=== PATIENT | female | born 1950 | race Caucasian/White ===

== ENCOUNTER 2018-05-01 12:30 | Inpatient (IN) | payer OTHER, MEDICARE ==
[~2018-05-01] VITALS: Ht 165.1 cm; Wt 77.1 kg
--- NOTE | ~2018-05-01 | CON ---
[address] [address] CONSULTATION Name: PRACHIDEBBIE Juan Antonio Room: [address] IN ..#: [id number] Admission: 05/01/18 Attend Phys: Savanah Parker Discharge: Date of : 50 Report #: [id number] THIS REPORT FOR: //name// CC: Shana Talbert DO DATE OF SERVICE: 05/02/2018 REQUESTING PHYSICIAN: Robert Talbert DO REASON FOR CONSULT: Acute symptoms of nausea, vomiting and diarrhea. HISTORY OF PRESENT ILLNESS: This is a 68-year-old female with acute symptoms of nausea and vomiting, which started Friday after having a bad headache. The patient reports that her diarrhea and vomiting improved by Friday, but she was not able to eat or hydrate herself. This went on until Friday when she was getting run down and weaker. She decided to go see her primary care doctor, which referred her to the ER. During her ER visit, the patient found to have acute renal failure mainly due to dehydration. She also had some electrolyte imbalance. The patient was admitted for hydration. The patient reports that since admission she is feeling better. She has not had any vomiting or diarrhea. She also denies any abdominal pain. She denies any hematochezia, melena or hematemesis. Her renal function has improved, but not to baseline. She also continues to have hyponatremia with sodium of 129. PAST MEDICAL HISTORY: Significant for history of peptic ulcer disease. She reports that she has had upper endoscopies in the past. She also has had a colonoscopy 4-5 years ago, which was negative. PAST MEDICAL HISTORY: Significant for hypothyroidism, peptic ulcer disease, GERD, arthritis, hypertension, history of foot surgery, hysterectomy, and migraines. ALLERGIES: SIGNIFICANT TO MEPERIDINE. MEDICATIONS: Please refer to hospital MAR. SOCIAL HISTORY: The patient is and lives at home. She denies tobacco or alcohol use. FAMILY HISTORY: Noncontributory. PHYSICAL EXAMINATION: [place] [address] CONSULTATION Name: DEBBIE VELARDE Juan Antonio Room: [address]#: [id number] Admission: 05/01/18 Attend Phys: Savanah Parker Discharge: Date of : 50 Report #: [id number] VITAL SIGNS: Reveals blood pressure of 104/49, respirations 16, pulse 87, temperature 97.1. LUNGS: Clear. CARDIOVASCULAR: Regular. ABDOMEN: Soft, nontender, nondistended. Bowel sounds are positive. NEUROLOGIC: The patient is alert, oriented x 3. There is no focal neurologic deficit. LABORATORY DATA: Reveal sodium of 129, potassium 4.7, BUN is 32, down from 50; creatinine is 1.4, down from 2.2; AST is 151, ALT is 57, lipase is 141, total bilirubin 0.3. WBC is 8.9, hemoglobin is 13.0 with platelet of 334. IMAGING: None has been obtained. ASSESSMENT AND PLAN: The patient with what appears to be gastroenteritis with symptoms of nausea and vomiting and diarrhea, which has improved. Subsequently, she has developed rhabdomyolysis and dehydration with electrolyte imbalance. Since IV hydration she is improving, but she may need another day or two of hospitalization. Her elevated AST is due to rhabdomyolysis rather than being from the liver. I do not see any role for any endoscopic evaluation at this time. We will continue to correct the patient's electrolytes and hopefully she may go home in a day or two. By: [id number] Navas MD /nt
[~2018-05-01 12:30] MED LIST: BUTALB-APAP-CA1 EACH PO; CYMBALTA30 MG PO; OXYCONTIN60 MG PO; PEPCID20 MG PO; PHENERGAN25 MG RE; PROTONIX40 M1 PO
[2018-05-01 12:38] VITALS: BP 98/55
[2018-05-01] MEDS ORDERED: PREDNISONE 10 M10 MG PO (12:42)
[2018-05-01] MEDS ORDERED: TOPAMAX50 MG PO (12:43)
[2018-05-01] MEDS ORDERED: CELEBREX 200 M200 M1 PO (12:43)
[2018-05-01] MEDS ORDERED: ALTACE10 MG PO (12:44)
[2018-05-01] MEDS ORDERED: SYNTHROID50 MCG PO (12:45)
[2018-05-01 13:01] LABS: HEMATOCRIT 37.9 % (37.0-47.0); MCH 31.2 pg (26.0-34.0); MCHC 34.3 g/dL (28.0-37.0); MCV 91.1 fL (80.0-100.0); MPV 6.5 fl. (7.2-11.1); NUCLEATED RBCS 0 /100WBC; PLATELET COUNT* 334 thou/uL (150-400); RBC 4.15 mil/uL (4.20-5.00); RDW-CV 14.1 % (10.5-14.5); WBC 8.9 thou/uL (4.0-11.0)
[2018-05-01 13:18] LABS: CREATININE 2.2 mg/dL (0.6-1.3); POTASSIUM 3.7 mmol/L (3.5-5.1)
[2018-05-01 13:21] LABS: ABSOLUTE LYMPHOCYTES 0.6 thou/uL (0.8-5.3); ABSOLUTE MONOCYTES 0.4 thou/uL (0.0-1.2); ABSOLUTE NEUTROPHILS 7.9 thou/uL (1.6-8.1); PLATELET ESTIMATE ADEQUATE
[2018-05-01 13:22] LABS: ALBUMIN 3.1 g/dL (3.4-5.0); TOTAL BILIRUBIN 0.3 mg/dL (<0.1-1.0); TOTAL PROTEIN 6.9 g/dL (6.4-8.2)
[2018-05-01 14:22] LABS: URINE BILIRUBIN NEGATIVE (Negative); URINE BLOOD 1+ (Negative); URINE CLARITY CLEAR; URINE COLOR YELLOW; URINE GLUCOSE-RANDOM NEGATIVE (Negative); URINE KETONES NEGATIVE (Negative); URINE LEUKOCYTES-REFLEX NEGATIVE (Negative); URINE NITRITE-REFLEX NEGATIVE (Negative); URINE PROTEIN NEGATIVE (Negative); URINE UROBILINOGEN 0.2 E.U./dl (0.2-1.0)
[2018-05-01 14:29] LABS: BACTERIA-REFLEX 1-9 Few /HPF (None Seen); SQUAMOUS 0-3 Few /LPF (0-3); URINE RBC 0-2 Rare /HPF (0-2); URINE WBC-REFLEX 0-5 Rare /HPF (0-5)
--- NOTE | 2018-05-01 16:37 | EKG ---
[place] [address] ELECTROCARDIOGRAM REPORT Name: PRACHIDEBBIE Room: [place] [address] ADM IN [facility]#: [id number] Admission: 05/01/18 Attend Phys: Savanah Parker Discharge: Date of : 50 Report #: [id number] THIS REPORT FOR: //name// [facility] ED Test Date: 2018-05-01 Test Time: 12:51:20 Pat Name: DEBBIE VELARDE Department: Room: [facility] Gender: F [employer]er [employer] Grinder: Anette PAULINO : 1950 Requested By: Karin Bran Order Number: [id number] MD: Ronnell Zurita Measurements Intervals [place] Rate: 77 P: 29 ID: [id number] QRS: -1 QRSD: 93 T: 72 QT: 382 QTc: 433 Interpretive Statements Sinus rhythm Minimal ST elevation, inferior leads No previous ECG available for comparison Electronically Signed On 05-01-2018 16:37:29 STAFF TOXICOLOGIST by Ronnell Zurita [email or web address] <ELECTRONICALLY SIGNED> By: Ronnell Zurita MD, [facility] 05/01/18 1637 [id number] 1251 Ronnell Zurita MD, FACC /EPI
[2018-05-01 17:38] VITALS: BP 103/52
[2018-05-01 18:00] VITALS: BP 122/64
[2018-05-01 18:06] VITALS: BP 97/43
--- NOTE | 2018-05-01 18:25 | NUR ---
PT REMAINED ALERT AND ORIENTED. PT IS ON ROOM AIR. PT HAS NS RUNNING AT 100 IN LEFT AC IV. PT DENIES N/V/D CURRENTLY, ADMITTED WITH IT AND WAS GIVEN ZOFRAN TO CONTROL NAUSEA PRIOR TO ADMITTANCE TO FLOOR. PT IS AFEBRILE. PT HAS GENERALIZED WEAKNESS. REGULAR DIET. FALL RISK PRECAUTIONS IN PLACE. WILL CONTINUE TO MONITOR.
[2018-05-01 20:45] VITALS: BP 103/56
--- NOTE | 2018-05-02 06:47 | NUR ---
ALERT AND ORIENTED X4. UP WITH STAND BY ASSIST. DENIES C/O PAIN. C/O NAUSEA AND NEW ORDER FOR NAUSEA MEDICATION GIVEN AND HELPFUL. IVF INFUSING WITHOUT DIFFICULTY. CALL LIGHT WITHIN REACH.
[2018-05-02 08:30] VITALS: BP 104/49
[2018-05-02 08:51] LABS: CALCIUM 8.3 mg/dL (8.5-10.1); CREATININE 1.4 mg/dL (0.6-1.3)
[2018-05-02 16:00] VITALS: BP 123/78
--- NOTE | 2018-05-02 17:20 | NUR ---
PT REMAINED ALERT AND ORIENTED. PT C/O NAUSE, ZOFRAN AND PHENERGAN GIVEN FOR NAUSEA. PT IS AFEBRILE AND DENIES ANY PAIN. GI SAW PT AND STATED TO REPLACE ELECTROLYTES NEEDED AND NO OTHER INTERVENTIONS NEEDED AT THIS TIME. PT DENIES ANY FURTHER NEEDS OR CONCERNS THIS SHIFT. FALL RISK PRECAUTIONS IN PLACE. HOURLY ROUNDING COMPLETED. WILL CONTINUE TO MONITOR.
[2018-05-02 21:45] VITALS: BP 128/77
[2018-05-03 04:40] LABS: CALCIUM 7.7 mg/dL (8.5-10.1); CREATININE 1.1 mg/dL (0.6-1.3); POTASSIUM 4.4 mmol/L (3.5-5.1)
--- NOTE | 2018-05-03 06:35 | NUR ---
ALERT AND ORIENTED X4. DENIED NEED FOR NAUSEA OR PAIN MEDICATION. UP AD RISHI IN ROOM. IVF INFUSING WITHOUT DIFFICULTY. CALL LIGHT WITHIN REACH. WILL CONHTINUE TO MONITOR.
[2018-05-03 07:50] VITALS: BP 128/54
[2018-05-03 16:09] VITALS: BP 128/72
[2018-05-03 21:30] VITALS: BP 140/66
[2018-05-04 04:34] LABS: CALCIUM 8.1 mg/dL (8.5-10.1)
[2018-05-04 04:38] LABS: POTASSIUM 5.5 mmol/L (3.5-5.1)
--- NOTE | 2018-05-04 06:34 | NUR ---
ALERT AND ORIENTED X4. NO C/O N/V WITH REGULAR DIET. UP AD RISHI IN ROOM WITH OUT DIFFICULTY. NO C/O PAIN CALL LIGHT WITHIN REACH. WILL CONTINUE TO MONITOR.
[2018-05-04 08:00] VITALS: BP 141/83
[2018-05-04] MEDS ORDERED: PROMS25 WY RECTAL (12:10)
[2018-05-04 12:12] VITALS: BP 141/83
== END 2018-05-04 12:30 | disposition home or self-care (01) | DRG 640 ==
LOC: M.ERS 12:30 → M.ORTHSURG 15:24 → M.TBA-ER 15:24 → M.ORTHSURG 17:24
PROVIDERS: Nurse Practitioner Family; ADMIT Internal Medicine
DX: E87.1 Hypo-osmolality and hyponatremia (principal); N17.0 Acute kidney failure with tubular necrosis; M62.82 Rhabdomyolysis; K52.9 Noninfective gastroenteritis and colitis, unspecified; G43.909 Migraine, unspecified, not intractable, without status migrainosus; E03.9 Hypothyroidism, unspecified; K21.9 Gastro-esophageal reflux disease without esophagitis; M19.90 Unspecified osteoarthritis, unspecified site; E86.0 Dehydration; Z90.710 Acquired absence of both cervix and uterus; Z88.8 Allergy status to other drugs, medicaments and biological substances; Z87.11 Personal history of peptic ulcer disease; Z87.891 Personal history of nicotine dependence; Z79.899 Other long term (current) drug therapy